=== PATIENT | male | born 2000 | race Caucasian/White ===

== ENCOUNTER 2018-10-27 11:19 | Emergency (ER) | payer BC, OTHER ==
--- NOTE | 2018-10-27 12:17 | EDM.PDOC ---
ED HPI GENERAL MEDICAL PROBLEM - General Chief Complaint: Cardiovascular Problem Stated Complaint: RAPID HEART RATE Time Seen by Provider: 10/27/18 11:41 Source of Information: Reports: Patient, Family (Father, on phone) History Limitations: Reports: No Limitations - History of Present Illness INITIAL COMMENTS - FREE TEXT/NARRATIVE: The patient states that he developed rapid palpitations, lightheadedness, leg shakiness when walking, chest tightness with deep breaths, bilateral feet tingling, nausea, and anxiousness, while vaping nicotine around 10:00 to 10:30 this morning. He states that he has been vaping for about 1.5 years. He did not take any [id number] or home remedies prior to coming to the ED. The patient states that he has had prior palpitations, along with lightheadedness, nausea, and anxiety, that have occurred when he exercises, however, he states that this time it was different. The patient believes that he wore a Holter monitor or event monitor when he was around 11 years old, but no abnormalities were found. Here in the ED, the patient is found to be hemodynamically stable, not tachycardic, but it is noted that his oxygen saturation is 100% on room air. He states that he feels less shaky, slightly lightheaded, no nausea, no chest tightness, and an improved heart rate. The patient's [employer] Bench Hand was Dr. Cox. He has not found a new PCP. Chest Pain Score (Numeric/FACES): 5 - Related Data Allergies Allergy/AdvReac Type Severity Reaction Status Date / Time Penicillins Allergy Rash Verified 10/27/18 11:36 Home Meds: Home Meds Multivitamin with Minerals [Multiple Vitamin] 1 tab PO DAILY 10/27/18 [History] Past Medical History HEENT History: Reports: Impaired Vision Other HEENT History: wears eyeglasses. Musculoskeletal History: Reports: Fracture (clavicle, at ) Psychiatric History: Reports: Anxiety (untreated), Depression (untreated), Panic Attack (untreated) Dermatologic History: Reports: Eczema - Past Surgical History HEENT Surgical History: Reports: Oral Surgery (wisdom teeth extraction) Social & Family History - Tobacco Use Smoking Status *Q: Never Smoker Tobacco Use Within Last Twelve Months: Other (See Below) (Vapes nicotine) - Caffeine Use Caffeine Use: Reports: Coffee - Alcohol Use Alcohol Use History: Yes Alcohol Use Frequency: Socially - Recreational Drug Use Recreational Drug Use: Yes Drug Use in Last 12 Months: Yes Recreational Drug Type: Reports: Marijuana/Hashish (smokes on occasion, last on 10/24/2018) - Living Situation & Occupation Living situation: Reports: Single, Other (with roomates) Occupation: Student ([employer]) ED ROS GENERAL - Review of Systems Review Of Systems: ROS reveals no pertinent complaints other than HPI. ED EXAM, GENERAL - Physical Exam Exam: See Below Exam Limited By: No Limitations General Appearance: Alert, WD/WN, No Apparent Distress Eye Exam: Bilateral Eye: EOMI, Normal Inspection Ears: Normal External Exam, Hearing Grossly Normal Nose: Normal Inspection Throat/Mouth: Normal Inspection, Normal Lips, Normal Voice, No Airway Compromise Head: Atraumatic, Normocephalic Neck: Normal Inspection, Full Range of Motion Respiratory/Chest: No Respiratory Distress, Lungs Clear, Normal Breath Sounds, No Accessory Muscle Use Cardiovascular: Normal Peripheral Pulses, Regular Rate, Rhythm, No Edema, No Gallop, No JVD, No Murmur, No Rub Peripheral Pulses: 4+: Radial (L), Radial (R) GI/Abdominal: Normal Bowel Sounds, Soft, Non-Tender, No Organomegaly, No Distention, No Abnormal Bruit, No Mass (Male) Exam: Deferred Rectal (Males) Exam: Deferred Back Exam: Normal Inspection, Full Range of Motion, NT Extremities: Normal Inspection, Normal Range of Motion, No Pedal Edema, Normal Capillary Refill Neurological: Alert, Oriented, Normal Cognition, No Motor/Sensory Deficits Psychiatric: Normal Affect Skin Exam: Warm, Dry, Intact, Normal Color, No Rash Course - Vital Signs Last Recorded V/S: Last Vital Signs Temp 36.4 C 10/27/18 11:35 Pulse 98 10/27/18 11:35 Resp 14 10/27/18 11:35 BP 138/79 10/27/18 11:35 Pulse Ox 100 10/27/18 11:35 - Orders/Labs/Meds Orders: Active Orders 24 hr Category Date Time Status EKG Documentation Completion [RC] STAT Care 10/27/18 12:11 Inactive - Re-Assessments/Exams Free Text/Narrative Re-Assessment/Exam: 10/27/18 12:12 The patient's history is entirely consistent with hyperventilation syndrome due to anxiety/panic attack, and the patient agrees. I explained that hyperventilation is usually due to anxiety/panic attack, but can, in rare cases , be due to a medical problem, such as a blood clot to the lungs, etc., and therefore I offered a workup to rule out such medical causes, although I stated that I did not think it was really necessary. The patient was not sure whether or not he should proceed with that workup, therefore he called his father, with whom I spoke on the phone. The patient's father is on his way to the ED at this time. He requested that we simply observe the patient at this time, and when he gets here, he will discuss workup options with his son. I agreed. In the meantime, we will check an ECG. 10/27/18 12:31 Notified that the patient's father is here, and that they refused the ECG. I will go talk to the 2 of them in a few minutes. 10/27/18 13:07 I discussed the patient's case with the patient and his father, at the bedside. They have decided to decline all testing. I will discharge the patient home, with the suggestion that he consider getting an Apple Watch; the Apple Watch can get a single lead ECG, which he could obtain whenever he is feeling palpitations, and even forward to his doctor for evaluation. Departure - Departure Time of Disposition: 13:08 Disposition: Home, Self-Care 01 Condition: Good Clinical Impression: Palpitations, Hyperventilation syndrome, Panic attack Instructions: Palpitations Referrals: Gege Cox MD [Primary Care Provider] - Forms: ED Department Discharge Additional Instructions: You were seen in the emergency room after developing palpitations, lightheadedness, shakiness in her legs, tingling in your feet, chest tightness with deep breaths, nausea, and anxiety. In the ER, your vital signs were stable, however, it was noticed that your oxygen saturation was 100% on room air, which suggests that you may be hyperventilating. Based on your history and physical examination, the cause of your symptoms was most likely due to hyperventilation syndrome, caused by a panic attack. A workup to confirm that was offered, but declined. Going forward, you may discuss with your PCP the option of getting an event monitor, but another option is to get an Apple Watch, with which you can obtain a single lead ECG whenever you are feeling palpitations. The ECG can then be forwarded to your PCP for evaluation. If any other problems, please do not hesitate to return to the ER. - My Orders Last 24 Hours: My Active Orders 10/27/18 12:11 EKG Documentation Completion [RC] STAT - Assessment/Plan Last 24 Hours: My Active Orders 10/27/18 12:11 EKG Documentation Completion [RC] STAT
== END 2018-10-27 13:20 | disposition home or self-care (01) ==
LOC: JD.ED 11:19
DX: F41.0 Panic disorder [episodic paroxysmal anxiety] (principal); F45.8 Other somatoform disorders; Z88.0 Allergy status to penicillin
CPT/HCPCS: 99284

== ENCOUNTER 2022-07-30 19:52 | Emergency (ER) | payer OTHER | END 2022-07-30 22:26 | disposition home or self-care (01) | LOC: JD.ED 19:52 | DX: N50.811 Right testicular pain (principal); Z88.0 Allergy status to penicillin | CPT/HCPCS: 76870; 76870-26; 93975; 99283; 99284 ==